=== PATIENT | male | born 1965 | race Caucasian/White ===

== ENCOUNTER 2025-08-02 21:19 | Inpatient (IN) | payer BC, SELFPAY ==
[~2025-08-02 21:19] MED LIST: Iopamidol-370 76% 500 ML MDV (1 ML CHARGE) ONE
[2025-08-02 22:39] LABS: INR-International Normal Ratio 1.8; Prothrombin Time 20.7 sec (12.0-14.7)
[2025-08-02 23:02] LABS: ALT (SGPT) 152 U/L (Less than 45); AST (SGOT) 105 U/L (11-34); Albumin 2.5 g/dL (3.1-4.5); Alkaline Phosphatase 93 U/L (40-110); Anion Gap 15 mmol/L (10-20); BUN (Urea Nitrogen) 28 mg/dL (8.4-25.7); Bilirubin, Total 0.7 mg/dL (0.3-1.2); Calc. Creatinine Clearance 0 mL/min (70-130); Calcium 8.1 mg/dL (7.8-10.44); Carbon Dioxide 18 mmol/L (22-29); Chloride 104 mmol/L (98-107); Globulin 3.5 g/dL (2.4-3.5); Glucose 108 mg/dL (70-105); Potassium 4.2 mmol/L (3.5-5.1); Sodium 133 mmol/L (136-145)
[2025-08-02 23:51] LABS: #Basophils Less than 0.03 10x3/uL (0.0-0.2); #Eosinophils Less than 0.03 10x3/uL (0.0-0.7); #Monocytes 2.07 10x3/uL (0.11-0.59); #Neutrophils 13.87 10x3/uL (1.40-6.50); %Basophils 0.1 % (0.0-1.0); %Eosinophils 0.1 % (0.0-10.0); %Lymphocytes 8.2 % (21.0-51.0); %Monocytes 11.8 % (0.0-10.0); %Neutrophils 79.2 % (42.0-75.0); Hematocrit 13.7 % (42.0-52.0); Hemoglobin 3.7 g/dL (14.0-18.0); Mean Corpuscular Hemoglobin 18.1 pg (27.0-31.0); Mean Corpuscular Volume 67.2 fL (78.0-98.0); Platelet Count 458 10x3/uL (130-400); Red Blood Cell (RBC) Count 2.04 mill/uL (4.70-6.10); White Blood Cell (WBC) Count 17.52 10x3/uL (4.8-10.8)
[2025-08-02 23:54] LABS: Microcytosis SLIGHT = 6-15 cells HPF (0-5); Platelet Adequacy Comment Platelets Increased; Polychromasia SLIGHT = 2-3 cells HPF (0-2)
[2025-08-03] MEDS ORDERED: Vancomycin 1 GM/200 ML (FROZEN) BAG ONE (03:52)
[2025-08-03] MEDS: Furosemide 40 MG (4 mL) VIAL SLOW IVP SCH (04:56)
[2025-08-03] MEDS ORDERED: Ondansetron PF 4 MG/2 ML Vial IVP PRN (05:08)
[2025-08-03 06:59] LABS: Glucose, Urine (Dipstick) Normal (Negative); Leukocyte Negative Leu/uL (Negative); Protein, Urine (Dipstick) Negative (Neg-Trace); Specific Gravity, Urine 1.023 (1.002-1.036)
[2025-08-03 07:14] LABS: Protein, Urine Random Quant Less than 10 mg/dL (1-14)
[2025-08-03] MEDS ORDERED: Vancomycin 1 GM in Premix 1 BAG IVPB SCH (09:00)
[2025-08-03] MEDS: Vancomycin 1.5 GM / NS 500ML VIAL-2-BAG IVPB SCH (09:11)
[2025-08-03] MEDS: Pantoprazole 40 MG VIAL IVP SCH (09:11)
[2025-08-03] MEDS: Mupirocin 1 GM TUBE TP SCH (09:12)
[2025-08-03 09:44] LABS: Hematocrit 18.3 % (42.0-52.0); Hemoglobin 5.2 g/dL (14.0-18.0); Mean Corpuscular Hemoglobin 20.6 pg (27.0-31.0); Mean Corpuscular Volume 72.3 fL (78.0-98.0); Platelet Count 404 10x3/uL (130-400); Red Blood Cell (RBC) Count 2.53 mill/uL (4.70-6.10); White Blood Cell (WBC) Count 16.53 10x3/uL (4.8-10.8)
[2025-08-03 10:01] LABS: Iron Binding Capacity, Total 323 mcg/dL (261-462); Transferrin, Serum 258 mg/dL (174-364)
[2025-08-03] MEDS: Vancomycin 1.25 GM / NS 250 ML VIAL-2-BAG IVPB SCH (17:04)
[2025-08-03 18:38] LABS: Hematocrit 22.3 % (42.0-52.0); Hemoglobin 6.5 g/dL (14.0-18.0)
[2025-08-04 04:42] LABS: #Basophils 0.04 10x3/uL (0.0-0.2); #Eosinophils 0.18 10x3/uL (0.0-0.7); #Monocytes 1.88 10x3/uL (0.11-0.59); #Neutrophils 15.47 10x3/uL (1.40-6.50); %Basophils 0.2 % (0.0-1.0); %Eosinophils 0.9 % (0.0-10.0); %Lymphocytes 7.7 % (21.0-51.0); %Monocytes 9.8 % (0.0-10.0); %Neutrophils 80.4 % (42.0-75.0); Hematocrit 21.4 % (42.0-52.0); Hemoglobin 6.2 g/dL (14.0-18.0); Mean Corpuscular Hemoglobin 20.9 pg (27.0-31.0); Mean Corpuscular Volume 72.3 fL (78.0-98.0); Platelet Count 387 10x3/uL (130-400); Red Blood Cell (RBC) Count 2.96 mill/uL (4.70-6.10); White Blood Cell (WBC) Count 19.26 10x3/uL (4.8-10.8)
[2025-08-04 05:16] LABS: ALT (SGPT) 127 U/L (Less than 45); AST (SGOT) 84 U/L (11-34); Albumin 2.2 g/dL (3.1-4.5); Alkaline Phosphatase 88 U/L (40-110); Anion Gap 9 mmol/L (10-20); BUN (Urea Nitrogen) 20 mg/dL (8.4-25.7); Bilirubin, Total 1.1 mg/dL (0.3-1.2); Calc. Creatinine Clearance 151 mL/min (70-130); Calcium 8.0 mg/dL (7.8-10.44); Carbon Dioxide 21 mmol/L (22-29); Chloride 109 mmol/L (98-107); Globulin 3.3 g/dL (2.4-3.5); Glucose 101 mg/dL (70-105); Potassium 3.3 mmol/L (3.5-5.1); Sodium 136 mmol/L (136-145)
[2025-08-04 05:17] LABS: Vancomycin, Random 16.4 ug/mL (See Comment)
[2025-08-04] MEDS: Furosemide 40 MG (4 mL) VIAL SLOW IVP SCH (07:37)
[2025-08-04] MEDS ORDERED: Electrolyte Replacement Protocol 1 EACH FS ONE (07:59)
[2025-08-04] MEDS ORDERED: Calcium Chloride 1 GM/10 ML Abboject SYRINGE IVP SCH (08:00)
[2025-08-04] MEDS: Pantoprazole 40 MG DR.TAB PO SCH (09:11)
[2025-08-04] MEDS ORDERED: Iopamidol-370 76% 500 ML MDV (1 ML CHARGE) ONE (10:16)
[2025-08-04 14:25] LABS: Potassium 3.4 mmol/L (3.5-5.1)
[2025-08-04] MEDS ORDERED: Bupivacaine 0.25% HCL 30 ML VIAL ONE (15:37)
[2025-08-04] MEDS ORDERED: Ketamine In 0.9 % NaCl 50 MG/5 ML SYRINGE ONE (15:56)
[2025-08-04] MEDS ORDERED: PROPOFOL 20 ML ONE (16:13)
[2025-08-05 06:07] LABS: #Basophils 0.04 10x3/uL (0.0-0.2); #Eosinophils 0.49 10x3/uL (0.0-0.7); #Monocytes 1.61 10x3/uL (0.11-0.59); #Neutrophils 12.94 10x3/uL (1.40-6.50); %Basophils 0.2 % (0.0-1.0); %Eosinophils 2.9 % (0.0-10.0); %Lymphocytes 9.4 % (21.0-51.0); %Monocytes 9.6 % (0.0-10.0); %Neutrophils 77.2 % (42.0-75.0); Hematocrit 24.5 % (42.0-52.0); Hemoglobin 7.3 g/dL (14.0-18.0); Mean Corpuscular Hemoglobin 22.5 pg (27.0-31.0); Mean Corpuscular Volume 75.6 fL (78.0-98.0); Platelet Count 364 10x3/uL (130-400); Red Blood Cell (RBC) Count 3.24 mill/uL (4.70-6.10); White Blood Cell (WBC) Count 16.77 10x3/uL (4.8-10.8)
[2025-08-05 06:21] LABS: Anion Gap 8 mmol/L (10-20); BUN (Urea Nitrogen) 15 mg/dL (8.4-25.7); Calc. Creatinine Clearance 183 mL/min (70-130); Calcium 8.0 mg/dL (7.8-10.44); Carbon Dioxide 24 mmol/L (22-29); Chloride 106 mmol/L (98-107); Glucose 94 mg/dL (70-105); Potassium 3.3 mmol/L (3.5-5.1); Sodium 135 mmol/L (136-145)
[2025-08-05 13:35] VITALS: BMI 35.4
[2025-08-05 13:51] LABS: Potassium 3.6 mmol/L (3.5-5.1)
[2025-08-06 06:20] LABS: #Basophils 0.04 10x3/uL (0.0-0.2); #Eosinophils 0.55 10x3/uL (0.0-0.7); #Monocytes 1.46 10x3/uL (0.11-0.59); #Neutrophils 11.25 10x3/uL (1.40-6.50); %Basophils 0.3 % (0.0-1.0); %Eosinophils 3.6 % (0.0-10.0); %Lymphocytes 11.3 % (21.0-51.0); %Monocytes 9.7 % (0.0-10.0); %Neutrophils 74.4 % (42.0-75.0); Hematocrit 24.4 % (42.0-52.0); Hemoglobin 7.1 g/dL (14.0-18.0); Mean Corpuscular Hemoglobin 22.3 pg (27.0-31.0); Mean Corpuscular Volume 76.7 fL (78.0-98.0); Platelet Count 380 10x3/uL (130-400); Red Blood Cell (RBC) Count 3.18 mill/uL (4.70-6.10); White Blood Cell (WBC) Count 15.12 10x3/uL (4.8-10.8)
[2025-08-06 07:15] LABS: ALT (SGPT) 63 U/L (Less than 45); AST (SGOT) 39 U/L (11-34); Albumin 2.1 g/dL (3.1-4.5); Alkaline Phosphatase 74 U/L (40-110); Anion Gap 8 mmol/L (10-20); BUN (Urea Nitrogen) 12 mg/dL (8.4-25.7); Bilirubin, Total 0.4 mg/dL (0.3-1.2); Calc. Creatinine Clearance 203 mL/min (70-130); Calcium 8.0 mg/dL (7.8-10.44); Carbon Dioxide 23 mmol/L (22-29); Chloride 111 mmol/L (98-107); Globulin 3.2 g/dL (2.4-3.5); Glucose 91 mg/dL (70-105); Potassium 3.6 mmol/L (3.5-5.1); Sodium 138 mmol/L (136-145)
[2025-08-06] MEDS: Furosemide 40 MG (4 mL) VIAL SLOW IVP SCH ×2 (13:15→17:02)
[2025-08-06 17:17] LABS: Hematocrit 28.1 % (42.0-52.0); Hemoglobin 8.3 g/dL (14.0-18.0)
[2025-08-07 07:15] LABS: #Basophils 0.05 10x3/uL (0.0-0.2); #Eosinophils 0.53 10x3/uL (0.0-0.7); #Monocytes 1.29 10x3/uL (0.11-0.59); #Neutrophils 7.99 10x3/uL (1.40-6.50); %Basophils 0.4 % (0.0-1.0); %Eosinophils 4.5 % (0.0-10.0); %Lymphocytes 16.2 % (21.0-51.0); %Monocytes 10.9 % (0.0-10.0); %Neutrophils 67.3 % (42.0-75.0); Hematocrit 25.3 % (42.0-52.0); Hemoglobin 7.4 g/dL (14.0-18.0); Mean Corpuscular Hemoglobin 22.7 pg (27.0-31.0); Mean Corpuscular Volume 77.6 fL (78.0-98.0); Platelet Count 337 10x3/uL (130-400); Red Blood Cell (RBC) Count 3.26 mill/uL (4.70-6.10); White Blood Cell (WBC) Count 11.86 10x3/uL (4.8-10.8)
[2025-08-07 08:01] LABS: ALT (SGPT) 47 U/L (Less than 45); AST (SGOT) 33 U/L (11-34); Albumin 2.0 g/dL (3.1-4.5); Alkaline Phosphatase 63 U/L (40-110); Anion Gap 8 mmol/L (10-20); BUN (Urea Nitrogen) 10 mg/dL (8.4-25.7); Bilirubin, Total 0.4 mg/dL (0.3-1.2); Calc. Creatinine Clearance 170 mL/min (70-130); Calcium 7.7 mg/dL (7.8-10.44); Carbon Dioxide 27 mmol/L (22-29); Chloride 107 mmol/L (98-107); Globulin 3.0 g/dL (2.4-3.5); Glucose 92 mg/dL (70-105); Magnesium 1.9 mg/dL (1.6-2.6); Potassium 3.5 mmol/L (3.5-5.1); Sodium 138 mmol/L (136-145)
[2025-08-07 08:21] LABS: Macrocytosis SLIGHT = 6-15 cells HPF (0-5); Ovalocytes SLIGHT = 2-5 cells HPF (0-1); Platelet Adequacy Comment Platelets Normal; Polychromasia MODERATE = 3-4 cells HPF (0-2)
[2025-08-07] MEDS: Magnesium 2 GM/50 ML(in water) 2 GM in Premix 1 BAG IVPB SCH (09:34)
[2025-08-07] MEDS: Furosemide 40 MG (4 mL) VIAL SLOW IVP SCH (13:50)
[2025-08-07 15:56] LABS: Hematocrit 28.2 % (42.0-52.0); Hemoglobin 8.2 g/dL (14.0-18.0)
[2025-08-08 05:31] VITALS: BMI 33.5
[2025-08-08 06:04] LABS: #Basophils 0.04 10x3/uL (0.0-0.2); #Eosinophils 0.37 10x3/uL (0.0-0.7); #Monocytes 1.17 10x3/uL (0.11-0.59); #Neutrophils 6.97 10x3/uL (1.40-6.50); %Basophils 0.4 % (0.0-1.0); %Eosinophils 3.5 % (0.0-10.0); %Lymphocytes 17.5 % (21.0-51.0); %Monocytes 11.2 % (0.0-10.0); %Neutrophils 66.9 % (42.0-75.0); Hematocrit 27.3 % (42.0-52.0); Hemoglobin 7.9 g/dL (14.0-18.0); Mean Corpuscular Hemoglobin 22.3 pg (27.0-31.0); Mean Corpuscular Volume 77.1 fL (78.0-98.0); Platelet Count 360 10x3/uL (130-400); Red Blood Cell (RBC) Count 3.54 mill/uL (4.70-6.10); White Blood Cell (WBC) Count 10.43 10x3/uL (4.8-10.8)
[2025-08-08 06:23] LABS: ALT (SGPT) 45 U/L (Less than 45); AST (SGOT) 37 U/L (11-34); Albumin 2.1 g/dL (3.1-4.5); Alkaline Phosphatase 61 U/L (40-110); Anion Gap 10 mmol/L (10-20); BUN (Urea Nitrogen) 11 mg/dL (8.4-25.7); Bilirubin, Total 0.4 mg/dL (0.3-1.2); Calc. Creatinine Clearance 175 mL/min (70-130); Calcium 8.0 mg/dL (7.8-10.44); Carbon Dioxide 26 mmol/L (22-29); Chloride 108 mmol/L (98-107); Globulin 3.3 g/dL (2.4-3.5); Glucose 90 mg/dL (70-105); Magnesium 2.0 mg/dL (1.6-2.6); Potassium 3.6 mmol/L (3.5-5.1); Sodium 140 mmol/L (136-145)
[2025-08-08 06:31] LABS: Anisocytosis SLIGHT = 6-15 cells HPF (0-5); Microcytosis SLIGHT = 6-15 cells HPF (0-5); Platelet Adequacy Comment Platelets Normal; Polychromasia SLIGHT = 2-3 cells HPF (0-2)
[2025-08-08] MEDS: Magnesium 2 GM/50 ML(in water) 2 GM in Premix 1 BAG IVPB SCH (09:58)
[2025-08-08] MEDS: Albumin 25% 25 GM (100 mL) BOT IVPB SCH (13:36)
[2025-08-09] MEDS: Furosemide 40 MG (4 mL) VIAL SLOW IVP SCH (05:52)
[2025-08-09 18:23] LABS: #Basophils 0.04 10x3/uL (0.0-0.2); #Eosinophils 0.24 10x3/uL (0.0-0.7); #Monocytes 1.37 10x3/uL (0.11-0.59); #Neutrophils 10.50 10x3/uL (1.40-6.50); %Basophils 0.3 % (0.0-1.0); %Eosinophils 1.7 % (0.0-10.0); %Lymphocytes 11.5 % (21.0-51.0); %Monocytes 9.9 % (0.0-10.0); %Neutrophils 76.2 % (42.0-75.0); Hematocrit 29.8 % (42.0-52.0); Hemoglobin 8.5 g/dL (14.0-18.0); Mean Corpuscular Hemoglobin 22.1 pg (27.0-31.0); Mean Corpuscular Volume 77.6 fL (78.0-98.0); Platelet Count 363 10x3/uL (130-400); Red Blood Cell (RBC) Count 3.84 mill/uL (4.70-6.10); White Blood Cell (WBC) Count 13.79 10x3/uL (4.8-10.8)
[2025-08-09 18:47] LABS: Anion Gap 10 mmol/L (10-20); BUN (Urea Nitrogen) 14 mg/dL (8.4-25.7); Calc. Creatinine Clearance 153 mL/min (70-130); Calcium 8.8 mg/dL (7.8-10.44); Carbon Dioxide 27 mmol/L (22-29); Chloride 105 mmol/L (98-107); Glucose 88 mg/dL (70-105); Magnesium 2.0 mg/dL (1.6-2.6); Potassium 4.0 mmol/L (3.5-5.1); Sodium 138 mmol/L (136-145)
[2025-08-09 19:27] LABS: Anisocytosis MODERATE=16-30 cells HPF (0-5); Burr Cells SLIGHT = 2-5 cells HPF (0-1); Macrocytosis SLIGHT = 6-15 cells HPF (0-5); Microcytosis MODERATE=15-30 cells HPF (0-5); Ovalocytes SLIGHT = 2-5 cells HPF (0-1); Platelet Adequacy Comment Platelets Normal; Polychromasia SLIGHT = 2-3 cells HPF (0-2); Schistocytes SLIGHT = 2-5 cells HPF (0-1); Stomatocytes SLIGHT = 2-5 cells HPF (0-1)
[2025-08-10] MEDS: Magnesium 2 GM/50 ML(in water) 2 GM in Premix 1 BAG IVPB SCH (00:57)
[2025-08-10 06:09] LABS: Magnesium 2.2 mg/dL (1.6-2.6)
[2025-08-10] MEDS: Sodium Ferric Gluconate 250 MG in Sodium Chloride 0.9% 250 ML 250 ML IVPB SCH (16:09)
[2025-08-11 06:50] LABS: #Basophils 0.05 10x3/uL (0.0-0.2); #Eosinophils 0.31 10x3/uL (0.0-0.7); #Monocytes 1.30 10x3/uL (0.11-0.59); #Neutrophils 4.63 10x3/uL (1.40-6.50); %Basophils 0.6 % (0.0-1.0); %Eosinophils 3.6 % (0.0-10.0); %Lymphocytes 26.8 % (21.0-51.0); %Monocytes 15.1 % (0.0-10.0); %Neutrophils 53.6 % (42.0-75.0); Hematocrit 30.4 % (42.0-52.0); Hemoglobin 8.6 g/dL (14.0-18.0); Mean Corpuscular Hemoglobin 22.3 pg (27.0-31.0); Mean Corpuscular Volume 78.8 fL (78.0-98.0); Platelet Count 389 10x3/uL (130-400); Red Blood Cell (RBC) Count 3.86 mill/uL (4.70-6.10); White Blood Cell (WBC) Count 8.63 10x3/uL (4.8-10.8)
[2025-08-11] MEDS: Furosemide 40 MG TAB PO SCH (07:30)
[2025-08-11 16:17] VITALS: BP 118/76; TEMP 97.7
== END 2025-08-11 15:55 | disposition home or self-care (01) | DRG 571 ==
LOC: ERS 21:19 → ERHOLD 08-03 03:24 → CCU 08-03 04:28 → T4-B 08-06 06:50
PROVIDERS: ADMIT Internal Medicine; ATTEND Family Medicine
PROC: 30233N1 Transfusion of Nonautologous Red Blood Cells into Peripheral Vein, Percutaneous Approach (ICD-10-PCS; 2025-08-03)
PROC: 3E03329 Introduction of Other Anti-infective into Peripheral Vein, Percutaneous Approach (ICD-10-PCS; 2025-08-03)
PROC: 30233J1 Transfusion of Nonautologous Serum Albumin into Peripheral Vein, Percutaneous Approach (ICD-10-PCS; 2025-08-03)
PROC: 05HY33Z Insertion of Infusion Device into Upper Vein, Percutaneous Approach (ICD-10-PCS; 2025-08-03)
PROC: 0JBG0ZZ Excision of Right Lower Arm Subcutaneous Tissue and Fascia, Open Approach (ICD-10-PCS; principal; 2025-08-04)
PROC: 30233K1 Transfusion of Nonautologous Frozen Plasma into Peripheral Vein, Percutaneous Approach (ICD-10-PCS; 2025-08-04)
DX: C43.61 Malignant melanoma of right upper limb, including shoulder (principal); I31.39 Other pericardial effusion (noninflammatory); L03.116 Cellulitis of left lower limb; J98.11 Atelectasis; R60.1 Generalized edema; D50.9 Iron deficiency anemia, unspecified; R74.01 Elevation of levels of liver transaminase levels; I35.0 Nonrheumatic aortic (valve) stenosis; B96.5 Pseudomonas (aeruginosa) (mallei) (pseudomallei) as the cause of diseases classified elsewhere
CPT/HCPCS: 36415; 36430; 71275; 74174; 80048; 80053; 80202; 81003; 82043; 82274; 82570; 82728; 83010; 83550; 83605; 83690; 83735; 83880; 84145; 84156; 84443; 84466; 84484; 85025; 85027; 85610; 86850; 86900; 86901; 87040; 87070; 87077; 87186; 87205; 87428; 88304; 88305; 93005; 93010; 93306; 93970; 94760; 96365; 96366; 96375; 97139; J0169; J0295; J0665; J0692; J1940; J2250; J2470; J2543; J2704; J2916; J3373; J3430; J3475; J3490; J7030; J7050; P9016; P9047; P9059; Q9967

== ENCOUNTER 2025-09-07 12:37 | Outpatient (CLI) | payer BC | END 2025-09-07 12:38 | disposition home or self-care (01) | LOC: PET 12:37 | PROVIDERS: ATTEND Internal Medicine Hematology & Oncology | DX: C43.61 Malignant melanoma of right upper limb, including shoulder (principal); D50.0 Iron deficiency anemia secondary to blood loss (chronic) | CPT/HCPCS: 70553; 76376; 78816; A9552 ==

== ENCOUNTER 2025-09-30 10:47 | Outpatient (CLI) | payer BC ==
[2025-09-30 11:45] LABS: #Basophils 0.04 10x3/uL (0.0-0.2); #Eosinophils 0.12 10x3/uL (0.0-0.7); #Monocytes 0.83 10x3/uL (0.11-0.59); #Neutrophils 1.69 10x3/uL (1.40-6.50); %Basophils 0.6 % (0.0-1.0); %Eosinophils 1.9 % (0.0-10.0); %Lymphocytes 57.2 % (21.0-51.0); %Monocytes 13.2 % (0.0-10.0); %Neutrophils 26.9 % (42.0-75.0); Hematocrit 40.8 % (42.0-52.0); Hemoglobin 12.8 g/dL (14.0-18.0); Mean Corpuscular Hemoglobin 27.5 pg (27.0-31.0); Mean Corpuscular Volume 87.6 fL (78.0-98.0); Platelet Count 195 10x3/uL (130-400); Red Blood Cell (RBC) Count 4.66 mill/uL (4.70-6.10); White Blood Cell (WBC) Count 6.28 10x3/uL (4.8-10.8)
[2025-09-30 12:06] LABS: ALT (SGPT) 49 U/L (Less than 45); AST (SGOT) 31 U/L (11-34); Albumin 3.8 g/dL (3.1-4.5); Alkaline Phosphatase 62 U/L (40-110); Anion Gap 12 mmol/L (10-20); BUN (Urea Nitrogen) 16 mg/dL (8.4-25.7); Bilirubin, Total 0.3 mg/dL (0.3-1.2); Calc. Creatinine Clearance 0 mL/min (70-130); Calcium 9.4 mg/dL (7.8-10.44); Carbon Dioxide 26 mmol/L (22-29); Cardiac Risk 4.0 (Less than 4.5); Chloride 107 mmol/L (98-107); Cholesterol 158 mg/dl (< 200 Desired); Globulin 3.1 g/dL (2.4-3.5); Glucose 86 mg/dL (70-105); HDL Cholesterol 40 mg/dL (>60 Neg Risk); LDL Cholesterol, Calculated 84 mg/dL; Potassium 4.5 mmol/L (3.5-5.1); Sodium 140 mmol/L (136-145); Triglycerides 169 mg/dL (Less than 150)
== END 2025-09-30 10:48 | disposition home or self-care (01) ==
LOC: LABBT 10:47
PROVIDERS: ATTEND Internal Medicine Cardiovascular Disease
DX: Z01.818 Encounter for other preprocedural examination (principal); I35.0 Nonrheumatic aortic (valve) stenosis
CPT/HCPCS: 80053; 80061; 85025; 93005; 93010

== ENCOUNTER 2025-10-01 10:13 | Day surgery (SDC) | payer BC ==
[2025-09-30 11:10] VITALS: BMI 30.7
[~2025-10-01 10:13] MED LIST changes: +Iopamidol 370 76% 100 ML VIAL ONE; -Iopamidol-370 76% 500 ML MDV (1 ML CHARGE) ONE
[2025-10-01] MEDS ORDERED: Lidocaine 1% (PF) 30 ML VIAL ONE (11:21)
[2025-10-01] MEDS ORDERED: Heparin 10,000 UNITS/ 10 ML VIAL ONE (11:21)
[2025-10-01] MEDS ORDERED: Nitroglycerin 50 MG/250 ML BOT 0 ML ONE (11:21)
== END 2025-10-01 17:45 | disposition home or self-care (01) ==
LOC: SDC 10:13
PROVIDERS: ATTEND Internal Medicine Cardiovascular Disease
PROC: 4A023N7 Measurement of Cardiac Sampling and Pressure, Left Heart, Percutaneous Approach (ICD-10-PCS; principal; 2025-10-01)
DX: I35.0 Nonrheumatic aortic (valve) stenosis (principal); I25.10 Atherosclerotic heart disease of native coronary artery without angina pectoris; I31.39 Other pericardial effusion (noninflammatory); D64.9 Anemia, unspecified; D22.62 Melanocytic nevi of left upper limb, including shoulder
CPT/HCPCS: 93454; 93458; 99152; 99153; C1769; C1894; J1644; J2003; J3010; Q9967